=== PATIENT | female | born 1975 | race Two or more races ===

== ENCOUNTER 2018-11-23 17:57 | Emergency (ER) | payer MEDICAID ==
[~2018-11-23] VITALS: Ht 167.6 cm; Wt 95.3 kg
--- NOTE | 2018-11-23 18:14 | NUR ---
PT PRESENTED TO THE ER WITH A C/O MIDSTERNAL CP SINCE YESTERDAY. PT IS ALSO C/O FEELING SOB. PT'S O2 SAT IS 100% ON RA. PT IS ABLE TO SPEAK IN FULL SENTENCES. NO S/S OF SOB. RESP EVEN AND UNLABORED. PT AMBULATED TO BED #13 WITH A STEADY GAIT.
[2018-11-23] MEDS ORDERED: KETOROLAC TROMETHAMINE INJ 30 MG/ML VIAL IV ONE (18:30)
[2018-11-23] MEDS ORDERED: ONDANSETRON HCL/PF 4 MG/2 ML VIAL IVP ONE (18:30)
[2018-11-23] MEDS ORDERED: IV NS 0.9% 1,000 ML BAG IV ONE (18:30)
[2018-11-23 18:44] LABS: BASOPHILS # (AUTO) 0.1 /CMM (0.0-0.2); BASOPHILS % (AUTO) 0.6 % (0.0-2.0); HEMATOCRIT 37 % (33-45); HEMOGLOBIN 12.3 g/dL (11.5-14.8); MEAN CORPUSCULAR HGB CONC 33 g/dl (31.0-36.0); MEAN CORPUSCULAR VOLUME 87 fL (82-100); MONOCYTES # (AUTO) 0.7 /CMM (0.1-1.30); MONOCYTES % (AUTO) 4.9 % (2.0-12.0); NEUTROPHILS # (AUTO) 12.5 /CMM (1.8-8.9); NEUTROPHILS % (AUTO) 81.5 % (43.0-81.0); PLATELET COUNT (AUTO) 303 /CMM (150-450); RED BLOOD CELL COUNT(AUTO) 4.29 MIL/uL (4.0-5.2); WHITE BLOOD COUNT (AUTO) 15.4 K/uL (4.3-11.0)
--- NOTE | 2018-11-23 18:45 | NUR ---
PT AMBULATED TO THE BATHROOM WITH A STEADY GAIT. PT IS TRYING TO GIVE A URINE SAMPLE.
--- NOTE | 2018-11-23 18:50 | NUR ---
URINE SAMPLE SENT TO LAB. PT WAS RECONNECTED TO THE MONITOR AND CONTINUOUS PULSE OX.
[2018-11-23 19:02] LABS: ALANINE AMINOTRANSFERASE 18 U/L (12-78); ALKALINE PHOSPHATASE 58 U/L (46-116); ASPARTATE AMINOTRANSFERASE 12 U/L (15-37); BILIRUBIN,DIRECT 0.1 mg/dL (0.0-0.2); BILIRUBIN,TOTAL 0.3 mg/dL (0.2-1.0); CALCIUM, SERUM 9.3 mg/dL (8.5-10.1); GLUCOSE 102 mg/dL (74-106); LIPASE 114 U/L (73-393); TOTAL PROTEIN, SERUM 7.8 g/dL (6.4-8.2)
[2018-11-23 19:15] LABS: SODIUM SERUM 142 mmol/L (136-145)
[2018-11-23 19:16] LABS: CARBON DIOXIDE 23 mmol/L (21-32); CHLORIDE 105 mmol/L (98-107); POTASSIUM 3.9 mmol/L (3.5-5.1); UREA NITROGEN, BLOOD 18 mg/dL (7-18)
[2018-11-23 19:23] LABS: APPEARANCE,URINE Clear (CLEAR); BILIRUBIN,URINE Negative (NEGATIVE); BLOOD, URINE Trace-lysed Ery/uL (NEGATIVE); COLOR,URINE Yellow (YELLOW); KETONES,URINE 15 (NEGATIVE); LEUKOCYTE ESTERASE ,URINE Negative (NEGATIVE); NITRITE, URINE Negative (NEGATIVE); PH,URINE 5.5 (5.0-8.0); PROTEIN,URINE Negative (NEGATIVE); UGLUCOSE Negative (NEGATIVE); UROBILINOGEN,URINE 0.2 EU/dL (0.2)
[2018-11-23] MEDS ORDERED: ONDANSETRON HCL/PF 4 MG/2 ML VIAL ONE (19:27)
[2018-11-23] MEDS ORDERED: KETOROLAC TROMETHAMINE 15 MG/ML VIAL ONE (19:27)
--- NOTE | 2018-11-23 19:32 | NUR ---
PT REC'D MEDICATION ORDERED.
[2018-11-23 19:34] LABS: RBC,URINE 0-2 /HPF (0-2); WBC,URINE 0-2 /HPF (0-3)
[2018-11-23 19:35] LABS: BACTERIA,URINE Few /HPF (None Seen); SQUAMOUS EPITHELIAL CELL,UR Rare /HPF (None Seen)
--- NOTE | 2018-11-23 20:04 | NUR ---
PT IS STILL C/O MIDSTERNAL CP 02/21. DR KHALIL WAS NOTIFIED.
--- NOTE | 2018-11-23 20:37 | NUR ---
IV removed. Catheter intact and site benign. Pressure and 4x4 applied to site. No bleeding noted. Patient discharged to home in stable condition. Written and verbal after care instructions given. Patient verbalizes understanding of instruction AND RX. PT STATED THAT SHE HAS SOMEONE PICKING HER UP. VSS. NAD NOTED. PT AMBULATED OUT WITH A STEADY GAIT.
[2018-11-23 20:38] VITALS: BP 132/72
== END 2018-11-23 20:38 | disposition home or self-care (01) ==
LOC: ER 18:03
DX: R07.89 Other chest pain (principal); R42 Dizziness and giddiness; R51 Headache
CPT/HCPCS: 36415; 80048; 80076; 81001; 83690; 84484; 84703; 85025; 93005; 96361; 96374; 96375; 99284; J1885; J2405; J7030; 81000-TC

== ENCOUNTER 2019-04-03 21:57 | Emergency (ER) | payer MEDICAID ==
[~2019-04-03] VITALS: Ht 167.6 cm; Wt 99.8 kg
--- NOTE | 2019-04-03 22:20 | NUR ---
TO BED 5 AMBULATORY C/O ABD PAIN X2 DAYS, (+) N/D STARTED TODAY. PT AAOX4 ANKUR CUTE DISTRESS NOTED, RESP EVEN AND UNLABORED. URINE SAMPLE COLLECTED AND SENT TO LAB. PENDING ER MD FERNANDEZ.
[2019-04-03] MEDS ORDERED: MORPHINE SULFATE INJ 4 MG/ML DISP.SYRIN ONE (22:29)
[2019-04-03] MEDS ORDERED: ONDANSETRON HCL/PF 4 MG/2 ML VIAL ONE (22:29)
[2019-04-03] MEDS ORDERED: IV NS 0.9% 1,000 ML BAG IV ONE (22:30)
[2019-04-03] MEDS ORDERED: ONDANSETRON HCL/PF 4 MG/2 ML VIAL IVP ONE (22:30)
[2019-04-03] MEDS ORDERED: MORPHINE SULFATE INJ 2 MG/ML DISP.SYRIN IV ONE ×2 (22:30→23:30)
[2019-04-03] MEDS ORDERED: ACETAMINOPHEN ES 500 MG TABLET PO ONE (22:30)
[2019-04-03] MEDS ORDERED: ACETAMINOPHEN ES 500 MG TABLET ONE (22:32)
[2019-04-03 22:39] LABS: APPEARANCE,URINE Clear (CLEAR); BILIRUBIN,URINE SMALL (NEGATIVE); BLOOD, URINE Large Ery/uL (NEGATIVE); COLOR,URINE Yellow (YELLOW); KETONES,URINE Trace (NEGATIVE); LEUKOCYTE ESTERASE ,URINE Negative (NEGATIVE); NITRITE, URINE Negative (NEGATIVE); PH,URINE 5.5 (5.0-8.0); PROTEIN,URINE Negative (NEGATIVE); UGLUCOSE Negative (NEGATIVE); UROBILINOGEN,URINE 0.2 EU/dL (0.2)
[2019-04-03 22:40] LABS: BASOPHILS % (AUTO) 0.3 % (0.0-2.0); EOSINOPHILS % (AUTO) 0.8 % (0.0-6.0); HEMATOCRIT 39 % (33-45); HEMOGLOBIN 12.9 g/dL (11.5-14.8); LYMPHOCYTES # (AUTO) 0.9 /CMM (0.8-4.8); LYMPHOCYTES % (AUTO) 11.5 % (20.0-44.0); MEAN CORPUSCULAR HGB CONC 33 g/dl (31.0-36.0); MEAN CORPUSCULAR VOLUME 87 fL (82-100); MONOCYTES # (AUTO) 0.6 /CMM (0.1-1.30); MONOCYTES % (AUTO) 7.3 % (2.0-12.0); NEUTROPHILS # (AUTO) 6.1 /CMM (1.8-8.9); NEUTROPHILS % (AUTO) 80.1 % (43.0-81.0); PLATELET COUNT (AUTO) 254 /CMM (150-450); RED BLOOD CELL COUNT(AUTO) 4.44 MIL/uL (4.0-5.2); WHITE BLOOD COUNT (AUTO) 7.6 K/uL (4.3-11.0)
--- NOTE | 2019-04-03 22:40 | NUR ---
PT TRANSPORTED TO RADIOLOGY FOR CT ABD/PELVIS.
--- NOTE | 2019-04-03 22:40 | NUR ---
PT MEDICATED ORDERED.
[2019-04-03 22:49] LABS: CALCIUM, SERUM 8.6 mg/dL (8.5-10.1); CARBON DIOXIDE 23 mmol/L (21-32); CHLORIDE 105 mmol/L (98-107); GLUCOSE 104 mg/dL (74-106); POTASSIUM 3.4 mmol/L (3.5-5.1); SODIUM SERUM 139 mmol/L (136-145); UREA NITROGEN, BLOOD 17 mg/dL (7-18)
--- NOTE | 2019-04-03 22:53 | NUR ---
PT BACK FROM RADIOLOGY. PENDING CT RESULT.
[2019-04-03 22:56] LABS: ALANINE AMINOTRANSFERASE 25 U/L (12-78); ALBUMIN 3.8 g/dL (3.4-5.0); ALKALINE PHOSPHATASE 63 U/L (46-116); ASPARTATE AMINOTRANSFERASE 20 U/L (15-37); BILIRUBIN,DIRECT 0.1 mg/dL (0.0-0.2); BILIRUBIN,TOTAL 0.5 mg/dL (0.2-1.0); LIPASE 103 U/L (73-393); TOTAL PROTEIN, SERUM 7.7 g/dL (6.4-8.2)
[2019-04-03] MEDS ORDERED: MORPHINE SULFATE INJ 2 MG/ML DISP.SYRIN ONE (23:30)
[2019-04-03 23:31] LABS: BACTERIA,URINE Few /HPF (None Seen); RBC,URINE 21-50 /HPF (0-2); SQUAMOUS EPITHELIAL CELL,UR Few /HPF (None Seen); WBC,URINE 0-2 /HPF (0-3)
--- NOTE | 2019-04-03 23:46 | NUR ---
IV removed. Catheter intact and site benign. Pressure and 4x4 applied to site. No bleeding noted. Patient discharged to home in stable condition. Written and verbal after care instructions given. Patient verbalizes understanding of instruction. ambulatory with a steady gait noted. pt aaox4 ketan cute distress noted, resp even and unlabored. advice pt not to drive or operate any machinery due to pt was given anrcotic medicine. pt verbalize understanding. pt at bedside to take pt home.
[2019-04-03 23:56] VITALS: BP 131/71
== END 2019-04-03 23:57 | disposition home or self-care (01) ==
LOC: ER 21:59
DX: K52.9 Noninfective gastroenteritis and colitis, unspecified (principal); R00.0 Tachycardia, unspecified
CPT/HCPCS: 36415; 74176; 80048; 80076; 81001; 83690; 84484; 84703; 85025; 93005; 96361; 96374; 96375; 96376; 99284; J2270 ×2; J2405; J7030; 81000-TC